=== PATIENT | female | born 1985 | race Caucasian/White ===

== ENCOUNTER → 2017-03-23 | Outpatient (CLI) | payer OTHER | LOC: OD 12:29 | PROVIDERS: ATTEND Physician Assistant | DX: R76.8 Other specified abnormal immunological findings in serum (principal) | CPT/HCPCS: 36415; 86317; 87340 ==

== ENCOUNTER → 2018-05-24 | Outpatient (CLI) | payer OTHER ==
--- NOTE | 2018-05-24 10:06 | RADIOLOGY REPORT (SQ) ---
EXAM DESCRIPTION: CT CHEST WITH; CT PELVIS WITH COMPLETED DATE/TIME: 05/24/2018 9:41 am REASON FOR STUDY: R07.81 PLEURODYNIA; R10.2 PELVIC AND PERINEAL PAIN R10.2 PELVIC AND PERINEAL PAIN R07.81 PLEURODYNIA COMPARISON: Chest films 08/13/2011 CONTRAST TYPE AND DOSE: contrast/concentration: Isovue 350.00 mg/ml; Total Contrast Delivered: 71.0 ml; Total Saline Delivered: 66.0 ml 71 mL of IV Omnipaque 350- low osmolar. RENAL FUNCTION: GFR > 60. TECHNIQUE: CT scan of the chest performed using helical scanning technique with dynamic intravenous contrast injection. Images reviewed with lung, soft tissue and bone windows. Reconstructed coronal a nd sagittal MPR images reviewed. All images stored on PACS. CT scan of the pelvis performed with intravenous and with oral contrastusing helical scanning techniq ue with dynamic intravenous contrast injection. Images reviewed with lung, soft tissue and bone wind ows. Reconstructed coronal and sagittal MPR images reviewed. Delayed images for evaluation of the u rinary system also acquired and evaluated. All images stored on PACS. All CT scanners at this facility use dose modulation, iterative reconstruction, and/or weight based d osing when appropriate to reduce radiation dose to as low as reasonably achievable (ALARA). [facility]: Dose Right [facility]: CareDose [facility]: Dose Right [facility]: Teradose 4D [facility]: [employer] RADIATION DOSE: CT Rad equipment meets quality standard of care and radiation dose reduction techniq ues were employed. CTDIvol: 4.4 - 5.2 mGy. DLP: 490 mGy-cm. . LIMITATIONS: None. FINDINGS: CHEST: LUNGS AND PLEURA: No opacities, nodules, masses. No pneumothorax. No effusions. HILAR AND MEDIASTINAL STRUCTURES: No identified masses or abnormal nodes. HEART AND VASCULAR STRUCTURES: No aneurysm or dissection. No central pulmonary emboli. No pericardi al effusion. HARDWARE: None. THYROID AND OTHER SOFT TISSUES: No masses. No adenopathy. Bilateral breast implants are present. BONES: No significant finding. OTHER: Limited view of the upper abdomen in the field of view demonstrates a 1.7 cm benign cyst in th e posterior right lobe liver. Gallbladder pancreas spleen kidneys adrenal glands incompletely includ ed in the field of view. PELVIS: Liver, spleen, pancreas, gallbladder, adrenal glands, kidneys, abdominal aorta incompletely included in the field of view, pelvis CT was ordered. RETROPERITONEUM: No retroperitoneal adenopathy, hemorrhage or masses. BOWEL AND PERITONEAL CAVITY: Patient drank oral contrast. Moderate stool in the colon. No dilated s mall bowel loops in the pelvis. Normal appendix on coronal reconstruction image 36. APPENDIX: Normal appendix on coronal reconstruction image 36 ABDOMINAL WALL: No masses. No hernias. PELVIS: Normal size uterus and ovaries. Physiologic cul-de-sac free fluid. Normal bladder. BONES: Bilateral L5 spondylolysis without listhesis OTHER: No other significant finding. IMPRESSION: NORMAL CT OF THE CHEST WITH IV CONTRAST. NORMAL CT OF THE PELVIS WITH ORAL AND INTRAVENOUS CONTRAST. TECHNICAL DOCUMENTATION: JOB ID: [id number] Quality ID # [id number]: Final reports with documentation of one or more dose reduction techniques (e.g., Au tomated exposure control, adjustment of the mA and/or kV according to patient size, use of iterative reconstruction technique) 2010 [employer]- All Rights Reserved Reading location - IP/workstation name: [email or web address]
== END ==
LOC: RAD 09:09
PROVIDERS: ATTEND Family Medicine
DX: R10.2 Pelvic and perineal pain (principal); R07.81 Pleurodynia
CPT/HCPCS: 71260; 72193

== ENCOUNTER 2020-04-28 07:51 | Day surgery (SDC) | payer OTHER ==
[2020-04-24 12:23] LABS: APPEARANCE,URINE CLEAR; BILIRUBIN,URINE NEGATIVE (NEGATIVE); COLOR,URINE YELLOW; GLUCOSE, URINE NEGATIVE (NEGATIVE); KETONES,URINE NEGATIVE (NEGATIVE); LEUKOCYTE ESTERASE,URINE NEGATIVE (NEGATIVE); NITRITE,URINE NEGATIVE (NEGATIVE); PROTEIN,URINE NEGATIVE (NEGATIVE); URINE SPECIFIC GRAVITY 1.006; UROBILINOGEN,URINE NEGATIVE mg/dL (<2.0)
[2020-04-24 12:28] LABS: HEMATOCRIT 40.5 % (36.0-47.0); HEMOGLOBIN 14.1 g/dL (12.0-15.5); MEAN CORPUSCULAR HGB CONC 34.7 g/dL (32.0-36.0); MEAN CORPUSCULAR VOLUME 89 fl (80-97); PLATELET COUNT 341 10^3/uL (150-450); RED BLOOD COUNT 4.53 10^6/uL (3.72-5.28); RED CELL DISTRIBUTION WIDTH 13.7 % (11.5-14.0); WHITE BLOOD COUNT 9.7 10^3/uL (4.0-10.5)
[2020-04-24 12:47] LABS: ANION GAP 11 (5-19); BLOOD UREA NITROGEN 9 mg/dL (7-20); CALCIUM 10.1 mg/dL (8.4-10.2); CARBON DIOXIDE 28 mmol/L (22-30); CHLORIDE 99 mmol/L (98-107); GLUCOSE 82 mg/dL (75-110); POTASSIUM 4.4 mmol/L (3.6-5.0)
[~2020-04-28 07:51] MED LIST: BUPIVACAINE HCL 0.5 % INJ/PF 30 ML SDV ONE; LACTATED RINGERS 1000 ML IV PRN; LIDOCAINE 1% INJ-PF (10 MG/ML) 30 ML SDV ONE
[2020-04-28] MEDS ORDERED: MIDAZOLAM 2 MG/2 ML INJ ONE (08:53)
[2020-04-28] MEDS ORDERED: MORPHINE SULFATE 10 MG/ML INJ ONE (08:53)
[2020-04-28] MEDS ORDERED: FENTANYL CITRATE INJ/PF 100 MCG/2 ML AMPUL ONE (08:53)
[2020-04-28] MEDS ORDERED: ONDANSETRON HCL INJ/PF 4 MG/2 ML SDV ONE (08:53)
[2020-04-28] MEDS ORDERED: PROPOFOL INJ 200 MG/20 ML VIAL IV ONE (08:54)
[2020-04-28] MEDS ORDERED: ROPIVACAINE HCL 0.2% INJ/PF (2 MG/ML) 20 ML SDV ONE (08:59)
[2020-04-28] MEDS ORDERED: CEFAZOLIN INJ 1 GM VIAL ONE (10:07)
[2020-04-28] MEDS ORDERED: MEPERIDINE HCL/PF INJ 25 MG/1 ML DISP.SYRIN IV PRN (10:28)
[2020-04-28] MEDS ORDERED: DIPHENHYDRAMINE HCL 50 MG/ML VIAL IV PRN (10:28)
[2020-04-28] MEDS ORDERED: MORPHINE SULFATE 10 MG/ML INJ IV PRN ×2 (10:28→11:24)
[2020-04-28] MEDS ORDERED: PROMETHAZINE HCL INJ 25 MG/1 ML VIAL IV PRN ×2 (10:28)
[2020-04-28] MEDS ORDERED: FENTANYL CITRATE INJ/PF 100 MCG/2 ML AMPUL IV PRN ×3 (10:28)
[2020-04-28] MEDS ORDERED: OXYCODONE-ACETAMINOPHEN 5-325 MG TABLET PO PRN ×3 (10:28→11:24)
[2020-04-28] MEDS ORDERED: OXYCODONE-ACETAMINOPHEN 5-325 MG TABLET ONE (11:11)
[2020-04-28] MEDS ORDERED: ONDANSETRON HCL INJ/PF 4 MG/2 ML SDV IV PRN (11:24)
[2020-04-28] MEDS ORDERED: RINGERS SOLUTION,LACTATED 1,000 ML IV PRN (11:24)
--- NOTE | 2020-04-28 11:24 | Operative Report ---
Operative Report DATE OF SURGERY: 04/28/20 PREOPERATIVE DIAGNOSIS: Right ankle hardware prominence POSTOPERATIVE DIAGNOSIS: Right ankle hardware prominence OPERATION: Right ankle removal of hardware SURGEON: MILO PARISI JR ANESTHESIA: GA TISSUE REMOVED OR ALTERED: Plate and 5 screws removed COMPLICATIONS: None ESTIMATED BLOOD LOSS: 5 cc PROCEDURE: The patient was brought to the operating suite and laid supine on the operating table. They are provided with 2 g Ancef preoperatively. They are placed under general anesthesia. The right lower extremity was then prepped and draped in standard sterile fashion. An appropriate timeout was performed. The right lower extremity was exsanguinated with Esmarch and the tourniquet was inflated to 250 mmHg. The prior incision was marked. Incision was carried to the skin followed by blunt dissection with a Babbitt elevator and Metzenbaum scissors through the fasci a down to the plate. The screws were exposed and removed with the assistance of fluoroscopy, ensuring complete removal of all screws. After all screws were removed the plate was then able to be released and removed from the wound. Following removal fluoroscopy ensured no remaining hardware. The wound was then copiously irrigated with sterile saline solution. The tourniquet was deflated and no brisk bleeding was encountered. 3-0 Monocryl was used in a subcutaneous inverted interrupted fashion, followed by a subcuticular running barbed 3-0 Monocryl. After this local anesthetic was provided. Sterile dressing was then placed followed by a lightly compressive Jamey wrap. The patient was then awakened from anesthesia and transferred the PACU in stable condition.
--- NOTE | 2020-04-28 11:29 | Discharge Summary ---
Discharge Summary (SDC) - Discharge Final Diagnosis: Right ankle prominent hardware Date of Surgery: 04/28/20 Discharge Date: 04/28/20 Treatment or Instructions: Right ankle removal of hardware Leave dressing in place for approximately 3 to 5 days. May remove afterwards. Ambulate weightbearing as tolerated in normal shoewear. The patient finds this uncomfortable she may contact the office and we can arrange for her to get a cam walker boot. Avoid high-impact activities for the next 6 to 8 weeks Follow-up in 10 days for wound evaluation Take pain medications as prescribed, will likely be well controlled with Tylenol Discharge Diet: As Tolerated Respiratory Treatments at Home: Deep Breathing/Coughing Discharge Activity: Activity As Tolerated, Keep Legs Elevated, No tub bath, Walk Frequently Report the Following to Your Physician Immediately: Shortness of Breath, Fever over 101 Degrees, Unusual Bleeding, Drainage-Yellow
--- NOTE | 2020-04-28 12:12 | RADIOLOGY REPORT (SQ) ---
EXAM DESCRIPTION: ANKLE RIGHT AP/LATERAL; NO CHG FLUORO IMAGES COMPLETED DATE/TIME: 04/28/2020 11:14 am REASON FOR STUDY: HARDWARE REMOVAL ASSISTED WITH FLUORO IN OR T84.498A [facility] COMPL OF INTERNAL ORTH DEVICES, IMPLNT AND GRA S82.61XS DISP FX OF LATERAL MALLEOLUS OF RIGHT FIBULA, SEQUE M25.579 PAIN I N UNSPECIFIED ANKLE AND JOINTS OF UNSPECIFIED COMPARISON: None. FLUOROSCOPY TIME: Less than one hour. 0.1 MINUTES LIMITATIONS: None. PROCEDURE: Fluoroscopy was provided for intraprocedural guidance. 1 images was stored in the PACS s ystem. IMPRESSION: Intraprocedural fluoroscopy was provided. 1 image was stored in the PACS system. Please Correlate with the procedure report. COMMENT: Quality ID 145: Final reports for procedures using fluoroscopy that document radiation exp osure indices, or exposure time and number of fluorographic images (if radiation exposure indices are not available) TECHNICAL DOCUMENTATION: JOB ID: [id number] 2010 [employer]- All Rights Reserved Reading location - IP/workstation name: [email or web address]
--- NOTE | 2020-04-28 12:12 | RADIOLOGY REPORT (SQ) ---
EXAM DESCRIPTION: ANKLE RIGHT AP/LATERAL; NO CHG FLUORO IMAGES COMPLETED DATE/TIME: 04/28/2020 11:14 am REASON FOR STUDY: HARDWARE REMOVAL ASSISTED WITH FLUORO IN OR T84.498A [facility] COMPL OF INTERNAL ORTH DEVICES, IMPLNT AND GRA S82.61XS DISP FX OF LATERAL MALLEOLUS OF RIGHT FIBULA, SEQUE M25.579 PAIN I N UNSPECIFIED ANKLE AND JOINTS OF UNSPECIFIED COMPARISON: None. FLUOROSCOPY TIME: Less than one hour. 0.1 MINUTES LIMITATIONS: None. PROCEDURE: Fluoroscopy was provided for intraprocedural guidance. 1 images was stored in the PACS s ystem. IMPRESSION: Intraprocedural fluoroscopy was provided. 1 image was stored in the PACS system. Please Correlate with the procedure report. COMMENT: Quality ID 145: Final reports for procedures using fluoroscopy that document radiation exp osure indices, or exposure time and number of fluorographic images (if radiation exposure indices are not available) TECHNICAL DOCUMENTATION: JOB ID: [id number] 2010 [email or web address]- All Rights Reserved Reading location - IP/workstation name: [email or web address]
[2020-04-28 12:39] VITALS: BP 113/79
== END 2020-04-28 12:30 | disposition home or self-care (01) ==
LOC: OROUT 07:51
PROVIDERS: ATTEND Orthopaedic Surgery
DX: T84.498A Other mechanical complication of other internal orthopedic devices, implants and grafts, initial encounter (principal); Y83.8 Other surgical procedures as the cause of abnormal reaction of the patient, or of later complication, without mention of misadventure at the time of the procedure; S82.61XS Displaced fracture of lateral malleolus of right fibula, sequela; X58.XXXS Exposure to other specified factors, sequela; Z03.818 Encounter for observation for suspected exposure to other biological agents ruled out
CPT/HCPCS: 20680; 36415; 85027; 87635; 81025; 80048; 81001; 73600; J2250; J3490 ×2; J0690; J3010; J2270; J2405; J2704; C9803; J2795